=== PATIENT | male | born 1995 | race Asian ===

== ENCOUNTER 2023-02-03 16:26 | Emergency (ER) | payer BC ==
[~2023-02-03] VITALS: Ht 185.4 cm; Wt 102.1 kg
[2023-02-03 16:32] VITALS: O2SAT 100
[2023-02-03 16:50] LABS: *BILIRUBIN,URIN NEGATIVE (NEGATIVE); *BLOOD, URINE NEGATIVE (NEGATIVE); *CLARITY,URINE CLEAR (CLEAR); *COLOR,URINE YELLOW (YELLOW); *KETONES,URINE NEGATIVE (NEGATIVE); *UROBILINOGEN,URINE 0.2 E.U./dl (NORMAL); LEUKOCYTE ESTERASE ,URINE NEGATIVE (NEGATIVE); NITRITE, URINE NEGATIVE (NEGATIVE); UGLUCOSE NEGATIVE (NEGATIVE)
[2023-02-03] MEDS ORDERED: DULO60CA45 PO (16:50)
[2023-02-03] MEDS ORDERED: Advair (16:50)
--- NOTE | 2023-02-03 17:56 | NUR ---
Patient discharged to home by Dr Gallardo in stable condition with brisk steady gait. Written and verbal after care instructions given to patient by Dr Gallardo himself. Patient verbalized understanding and compliance of instructions. Stressed follow up with primary doctor and urologist or return to ER for worsening s/s.
== END 2023-02-03 17:57 | disposition home or self-care (01) ==
LOC: ER 16:26
DX: R39.198 Other difficulties with micturition (principal); J45.909 Unspecified asthma, uncomplicated; Z79.899 Other long term (current) drug therapy
CPT/HCPCS: 76870; 87491; A4663